=== PATIENT | male | born 1995 | race Caucasian/White ===

== ENCOUNTER 2016-07-09 07:59 | Emergency (ER) | payer BC ==
[~2016-07-09] VITALS: Ht 180.3 cm; Wt 85.0 kg
[2016-07-09 08:05] VITALS: Ht 180.3 cm; Wt 85.0 kg
[2016-07-09] MEDS ORDERED: ONDANSETRON INJ 2 MG/ML 2 ML VIAL IV STA ×2 (08:13→12:54)
[2016-07-09] MEDS ORDERED: SODIUM CHLORIDE 0.9% 1000ML 1,000 ML IV STA ×2 (08:13→09:33)
[2016-07-09] MEDS ORDERED: KETOROLAC TROMETHAMINE 30 MG/ML VIAL IV STA (08:19)
--- NOTE | 2016-07-09 08:21 | EMERGENCY ROOM VISIT NOTE ---
History Report prepared by Marina: Tawana Cummins Under the Supervision of: Dr. Meng Sanchez M.D. First contact with patient: 08:13 Chief Complaint: ABDOMINAL PAIN Stated Complaint: ABDOMINAL PAIN, VOMITING History of Present Illness The patient is a 20 year old male who presents to the Emergency Room with complaints of persistent vomiting that began prior to arrival. He currently rates his discomfort as a 7/10 in severity. The patient states that he has had persistent vomiting and diarrhea. He additionally notes abdominal pain that is worsened with palpation of the abdomen. He notes back pain, but believes that is due to his persistent vomiting. The patient states that at [place] he was around his cousin who was diagnosed with the flu. Source of History: patient Onset: prior to arrival Position: other (global) Symptom Intensity: 7/10 Quality: other (vomiting) Timing: other (persistent) Associated Symptoms: + abdominal pain, + back pain, + diarrhea Review of Systems See HPI for pertinent positives & negatives. A total of 10 systems reviewed and were otherwise negative. Past Medical & Surgical No active medical problems. Family History Heart disease Social History Smoking Status: Never Smoker Smokeless Tobacco Use: No Marital Status: single Housing Status: lives with family Occupation Status: [employer] Current/Historical Medications Scheduled Ondasetron Odt (Zofran Odt), 4 MG SL Q6H Allergies Coded Allergies: Penicillins (Verified Allergy, Intermediate, childhood allergy, 07/09/16) Physical Exam Vital Signs Date Time Temp Pulse Resp B/P Pulse Ox O2 Delivery O2 Flow Rate FiO2 07/09/16 15:40 36.8 115 20 99/75 97 07/09/16 14:31 116 117/71 95 07/09/16 13:06 117 18 108/71 98 07/09/16 12:28 117 07/09/16 11:26 118 117/72 97 07/09/16 10:55 107 07/09/16 09:50 111 112/69 99 07/09/16 08:34 99 07/09/16 08:05 36.5 108 20 98/68 93 Room Air Physical Exam GENERAL: Patient is a healthy-appearing well-nourished HEAD: Normocephalic atraumatic EYES: Ocular movements intact pupils equal and react to light OROPHARYNX mucous membranes are moist no exudates present no erythema or edema present NECK: Supple no nuchal rigidity CHEST: Good equal expansion LUNGS: Clear and equal to auscultation CARDIAC: Normal S1 and S2 ABDOMEN: Soft nontender no guarding BACK: No CVA tenderness EXTREMITIES: No pain upon palpation normal muscle strength in all groups no clubbing cyanosis or edema NEURO: Patient is following commands is answering questions appropriately. Alert and oriented x3 Cranial Nerves 2-12 grossly intact Medical Decision & Procedures Laboratory Results 07/09/16 08:20 Red Blood Count 6.42, Mean Corpuscular Volume 81.5, Mean Corpuscular Hemoglobin 30.2, Mean Corpuscular Hemoglobin Concent 37.1, Mean Platelet Volume 10.5, Neutrophils (%) (Auto) 88.3, Lymphocytes (%) (Auto) 4.0, Monocytes (%) (Auto) 7.1, Eosinophils (%) (Auto) 0.2, Basophils (%) (Auto) 0.1, Neutrophils # (Auto) 13.07, Lymphocytes # (Auto) 0.59, Monocytes # (Auto) 1.05, Eosinophils # (Auto) 0.03, Basophils # (Auto) 0.01 07/09/16 08:20 Test 07/09/16 08:20 07/09/16 09:47 White Blood Count 14.80 K/uL (4.8-10.8) Red Blood Count 6.42 M/uL (4.7-6.1) Hemoglobin 19.4 g/dL (14.0-18.0) Hematocrit 52.3 % (42-52) Mean Corpuscular Volume 81.5 fL (80-100) Mean Corpuscular Hemoglobin 30.2 pg (25-34) Mean Corpuscular Hemoglobin Concent 37.1 g/dl (32-36) Platelet Count 231 K/uL (130-400) Mean Platelet Volume 10.5 fL (7.4-10.4) Neutrophils (%) (Auto) 88.3 % Lymphocytes (%) (Auto) 4.0 % Monocytes (%) (Auto) 7.1 % Eosinophils (%) (Auto) 0.2 % Basophils (%) (Auto) 0.1 % Neutrophils # (Auto) 13.07 K/uL (1.4-6.5) Lymphocytes # (Auto) 0.59 K/uL (1.2-3.4) Monocytes # (Auto) 1.05 K/uL (0.11-0.59) Eosinophils # (Auto) 0.03 K/uL (0-0.5) Basophils # (Auto) 0.01 K/uL (0-0.2) RDW Standard Deviation 38.3 fL (36.4-46.3) RDW Coefficient of Variation 12.9 % (11.5-14.5) Immature Granulocyte % (Auto) 0.3 % Immature Granulocyte # (Auto) 0.05 K/uL (0.00-0.02) Anion Gap 15.0 mmol/L (3-11) Est Creatinine Clear Calc Drug Dose 105.4 ml/min Estimated GFR () 101.0 Estimated GFR (Non- 87.1 BUN/Creatinine Ratio 16.2 (10-20) Calcium Level 10.1 mg/dl (8.5-10.1) Total Bilirubin 1.2 mg/dl (0.2-1) Direct Bilirubin 0.2 mg/dl (0-0.2) Aspartate Amino Transf (AST/SGOT) 20 U/L (15-37) Alanine Aminotransferase (ALT/SGPT) 29 U/L (12-78) Alkaline Phosphatase 99 U/L (45-117) Total Protein 8.9 gm/dl (6.4-8.2) Albumin 4.9 gm/dl (3.4-5.0) Lipase 215 U/L (73-393) Urine Color DK YELLOW Urine Appearance CLOUDY (CLEAR) Urine pH 5.5 (4.5-7.5) Urine Specific [place] 1.040 (1.000-1.030) Urine Protein 1+ (NEG) Urine Glucose (UA) NEG (NEG) Urine Ketones 2+ (NEG) Urine Occult Blood NEG (NEG) Urine Nitrite NEG (NEG) Urine Bilirubin NEG (NEG) Urine Urobilinogen NEG (NEG) Urine Leukocyte Esterase TRACE (NEG) Urine WBC (Auto) 1-5 /hpf (0-5) Urine RBC (Auto) 5-10 /hpf (0-4) Urine Hyaline Casts (Auto) 10-30 /lpf (0-5) Urine Epithelial Cells (Auto) 10-20 /lpf (0-5) Urine Bacteria (Auto) NEG (NEG) Urine Opiates Screen NEG (NEG) Urine Methadone, Qualitative NEG (NEG) Urine Barbiturates NEG (NEG) Urine Phencyclidine (PCP) Level NEG (NEG) Ur Amphetamine/Methamphetamine NEG (NEG) MDMA (Ecstasy) Screen NEG (NEG) Urine Benzodiazepines Screen NEG (NEG) Urine Cocaine Metabolite NEG (NEG) Urine Marijuana (THC) NEG (NEG) Date/Time Source Procedure Growth Status 07/09/16 09:47 Stool C.difficile Toxin B Gene (PCR) - Final No C. difficile toxin B gene detected Complete Labs reviewed by ED physician. Medications Administered Medications (Trade) Dose Ordered Sig/Dhaval Route Start Time Stop Time Status Last Admin Dose Admin Sodium Chloride (Nss 1000ml) 1,000 ml @ 999 mls/hr Q1H1M STAT IV 07/09/16 08:13 07/09/16 09:13 DC 07/09/16 08:22 999 MLS/HR Ondansetron HCl (Zofran Inj) 4 mg NOW STAT IV 07/09/16 08:13 07/09/16 08:14 DC 07/09/16 08:22 4 MG Ketorolac Tromethamine 30 mg 30 mg NOW STAT IV 07/09/16 08:19 07/09/16 08:21 DC 07/09/16 08:26 30 MG Promethazine HCl/ Sodium Chloride (Phenergan Inj/ Nss 50ml) 51 ml @ 204 mls/hr NOW STAT IV 07/09/16 09:33 07/09/16 09:47 DC 07/09/16 09:44 204 MLS/HR Acetaminophen 1000 mg 1,000 mg NOW STAT PO 07/09/16 09:33 07/09/16 09:34 DC 07/09/16 14:55 1,000 MG Sodium Chloride (Nss 1000ml) 1,000 ml @ 999 mls/hr Q1H1M STAT IV 07/09/16 09:33 07/09/16 10:33 DC 07/09/16 09:44 999 MLS/HR Prochlorperazine Edisylate (Compazine Inj) 10 mg NOW STAT IV 07/09/16 11:30 07/09/16 11:31 DC 07/09/16 11:40 10 MG Diphenhydramine HCl (Benadryl Inj) 50 mg NOW STAT IV 07/09/16 11:30 07/09/16 11:31 DC 07/09/16 11:39 50 MG Ondansetron HCl (Zofran Inj) 4 mg NOW STAT IV 07/09/16 12:54 07/09/16 12:55 DC 07/09/16 13:01 4 MG Methylprednisolone Sodium Succinate (Solu-Medrol IV) 125 mg NOW STAT IV 07/09/16 12:54 07/09/16 12:55 DC 07/09/16 13:01 125 MG Ondansetron HCl (ZOFRAN ODT 4MG Home Pack) 1 [facility] UD ONCE PO 07/09/16 15:00 07/09/16 15:01 DC 07/09/16 15:39 1 HOMEPACK ED Course 0816: Past medical records reviewed. The patient was evaluated in room B5. A complete history and physical examination was performed. 0813: Ordered Zofran Inj 4 mg IV, Sodium Chloride 1000 ml @ 999 mls/hr IV. 0819: Ordered Toradol Inj 30 mg IV. 0850: I reevaluated the patient and he is feeling much better. 0919: I reevaluated the patient and he is doing well. 0932: Per nursing staff, the patient is feeling nauseous again. Ordered Sodium Chloride 1000 ml @ 999 mls/hr IV, Tylenol Tab 1000 mg PO, Promethazine HCl 25 mg /Sodium Chloride 51 ml @ 04 mls/hr IV. 1111: I reevaluated the patient and he is complaining of feeling dizzy. 1129: Per nursing staff, the patient is vomiting again. Ordered Benadryl Inj 50 mg IV, Compazine Inj 10 mg IV. 1254: I reevaluated the patient and he would like to try some Gil lisa. Ordered Solu-Medrol IV 125 mg IV, Zofran Inj 4 mg IV. 1404: I reevaluated the patient and he is going to stay in the department for evaluation. Medical Decision Differential diagnosis: Etiologies such as appendicitis, diverticulitis, PUD, biliary pathology, UTI, pancreatitis, obstruction, mesenteric ischemia, aortic pathology, infections, inflammatory bowel disease, renal colic, as well as others were entertained. This is a 20-year-old male who presents emergency department complaining of vomiting and diarrhea. Serial abdominal examinations were performed on the patient in the emergency department and at no time did the patient exhibited a surgical abdomen. The patient does have slight elevation in his white blood count however I feel that this is from vomiting. An IV was established, patient given normal saline bolus, Zofran, Toradol. Repeat examination revealed much improvement patient's symptoms. The patient was able to trial by mouth Gatorade in the emergency department. I believe he is well enough to be discharged home for follow-up this primary care physician. The patient will be given Zofran for home. Patient and significant other were in agreement with the treatment plan. The patient did vomit his Gatorade multiple times after some time in the emergency department. For this reason he was then given Phenergan as well as Solu-Medrol and Zofran. At this point I did offer and recommend admission to the patient however he is refusing. He was then able to tolerate by mouth gil lisa in the emergency department. He again wished to be discharged. Again serial abdominal examinations were performed on the patient in no time did the patient exhibited a surgical abdomen. Impression Primary Impression: Acute gastroenteritis Scribe Attestation The scribe's documentation has been prepared under my direction and personally reviewed by me in its entirety. I confirm that the note above accurately reflects all work, treatment, procedures, and medical decision making performed by me. Departure Information Dispostion Home / Self-Care Prescriptions Ondasetron Odt (ZOFRAN ODT) 4 Mg Tab 4 MG SL Q6H for Nausea, #6 TAB Prov: Meng Sanchez MD 07/09/16 Referrals No Doctor, Assigned (PCP) Patient Instructions A Signature Page
[2016-07-09 08:46] LABS: BASO % 0.1 %; BASO ABS # 0.01 K/uL (0-0.2); COMPLETE YES; EOS % 0.2 %; HEMATOCRIT 52.3 % (42-52); IG% 0.3 %; LYMPH ABS # 0.59 K/uL (1.2-3.4); MEAN CELL VOLUME 81.5 fL (80-100); MEAN CORPUSCULAR HEMOGLOBIN 30.2 pg (25-34); MEAN CORPUSCULAR HGB CONC 37.1 g/dl (32-36); MEAN PLATELET VOLUME 10.5 fL (7.4-10.4); MONO % 7.1 %; NEUT % 88.3 %; PLATELET COUNT 231 K/uL (130-400); RED BLOOD COUNT 6.42 M/uL (4.7-6.1)
[2016-07-09 09:04] LABS: BUN/CREATININE RATIO 16.2 (10-20); CALCIUM 10.1 mg/dl (8.5-10.1); CREATININE 1.2 mg/dl (0.60-1.40); POTASSIUM 3.4 mmol/L (3.5-5.1)
[2016-07-09] MEDS ORDERED: ACETAMINOPHEN 500 MG TAB PO STA (09:33)
[2016-07-09] MEDS ORDERED: PROMETHAZINE HCL INJ 25 MG in SODIUM CHLORIDE 0.9% 50ML 50 ML IV STA (09:33)
[2016-07-09 10:16] LABS: URINE APPEARANCE CLOUDY (CLEAR); URINE COLOR DK YELLOW; URINE NITRITE NEG (NEG); URINE PH 5.5 (4.5-7.5); UROBILINOGEN NEG (NEG)
[2016-07-09 10:17] LABS: MANUAL MICROSCOPIC REQUIRED? NO; REVIEW REQ? NO
[2016-07-09 10:19] LABS: URINE BILIRUBIN NEG (NEG)
[2016-07-09] MEDS ORDERED: PROCHLORPERAZINE 5 MG/ML 2 ML VIAL IV STA (11:30)
[2016-07-09] MEDS ORDERED: DiphenhydrAMINE HCL 50 MG/ML VIAL IV STA (11:30)
[2016-07-09] MEDS ORDERED: METHYLPREDNISOLONE 125 MG VIAL IV STA (12:54)
[2016-07-09 14:13] LABS: BENZODIAZEPINE, URINE NEG (NEG); COCAINE,URINE NEG (NEG); PHENCYCLIDINE, URINE NEG (NEG)
[2016-07-09] MEDS ORDERED: ACETAMINOPHEN 500 MG TAB PO ONE (14:51)
[2016-07-09] MEDS ORDERED: ONDA4TAB10 SL (15:00)
[2016-07-09] MEDS ORDERED: ONDANSETRON HOME PACK 4MG OD TAB PO ONE (15:00)
[2016-07-09 15:40] VITALS: BP 99/75; PULSE 115; TEMP 36.8; O2SAT 97
== END 2016-07-09 16:04 | disposition home or self-care (01) ==
LOC: C.EDB 08:05
DX: K52.9 Noninfective gastroenteritis and colitis, unspecified (principal)